=== PATIENT | female | born 1945 | race Caucasian/White ===

== ENCOUNTER → 2016-08-26 | Outpatient (CLI) | payer BC ==
--- NOTE | 2016-08-26 16:39 | MAMMOGRAPHY REPORT ---
BILATERAL DIGITAL SCREENING MAMMOGRAM WITH CAD: 08/26/2016 CLINICAL HISTORY: Routine screening. Patient has no complaints. TECHNIQUE: Bilateral CC and MLO views were obtained. Current study was also evaluated with a Comput er Aided Detection (CAD) system. COMPARISON: Comparison is made to exams dated: 08/21/2015 mammogram, 08/08/2014 mammogram, 08/04/2013 mammogram, 07/30/2012 mammogram, 07/30/2011 mammogram, and 07/29/2010 mammogram - [facility] nter. BREAST COMPOSITION: There are scattered areas of fibroglandular density in both breasts. FINDINGS: There are 2 possible adjacent masses in the upper outer posterior left breast that are in creasingly prominent comparing to prior mammograms. They measure 5.9 and 7.5 mm. Further character ization with spot compression tomosynthesis views and targeted ultrasound are recommended. There are additional circumscribed sub-centimeter masses throughout each breast that are stable comp ared to prior mammograms. No other new suspicious mass, architectural distortion or cluster of susp icious microcalcifications is seen. IMPRESSION: ACR BI-RADS CATEGORY 0: INCOMPLETE EVALUATION: NEED ADDITIONAL IMAGING EVALUATION The 2 possible adjacent masses in the upper outer quadrant of the left breast need additional evalua tion. The patient will be called to schedule an appointment. Approximately 10% of breast cancers are not detected with mammography. A negative mammographic repor t should not delay biopsy if a clinically suggestive mass is present. Yoon Moncada M.D. ay/:08/26/2016 15:42:32 Research Associate Quality Control Qc: Herminia PUGA(Helio)(Ana), [facility] letter sent: Addl Imaging 0 BI-RADS Code: ACR BI-RADS Category 0: Incomplete Evaluation: Need Additional Imaging Evaluation
== END | disposition home or self-care (01) ==
LOC: C.MAMM 10:03
PROVIDERS: ATTEND Family Medicine
DX: Z12.31 Encounter for screening mammogram for malignant neoplasm of breast (principal); N63 Unspecified lump in breast

== ENCOUNTER → 2016-09-09 | Outpatient (CLI) | payer BC ==
--- NOTE | 2016-09-09 16:30 | MAMMOGRAPHY REPORT ---
UNILATERAL LEFT DIGITAL DIAGNOSTIC MAMMOGRAM TOMOSYNTHESIS AND TARGETED LEFT ULTRASOUND: 09/09/2016 CLINICAL HISTORY: 70-year-old woman called back from screening mammography for 2 possible adjacent m asses in the upper outer posterior left breast. TECHNIQUE: Spot compression left CC and MLO 2-D digital and tomosynthesis images were obtained. COMPARISON: Comparison is made to exams dated: 08/26/2016 mammogram, 08/21/2015 mammogram, 08/08/2014 m ammogram, 08/04/2013 mammogram, 07/30/2012 mammogram, and 07/29/2010 mammogram - [facility] nter. BREAST COMPOSITION: There are scattered areas of fibroglandular density in the left breast. FINDINGS: On the spot compression left CC view, there is persistence of a lobulated and circumscribe d 6.4 x 7.2 mm mass. The questionable mass versus nodular asymmetry posterior to the first mass eff aces with the additional spot compression tomosynthesis views, suggesting it represented overlapping tissue. There is no focal area of architectural distortion or suspicious microcalcification. On t he spot compression MLO view of the left superior breast, there are 2 adjacent partially circumscrib ed masses measuring 6 mm. When comparing to prior available mammograms, these appear similar dating back to at least 07/29/2010. Targeted ultrasound was performed in the lateral left breast. Incidental note is made of a morpholo gically normal lymph node in the left axilla. There is a circumscribed hypoechoic to anechoic mass in the 2:00 left breast, 5 cm from the nipple, measuring 4.6 x 3.3 x 4.6 mm. In the 2:30 left breas t, 4 cm from the nipple, a round anechoic cystic appearing mass is identified measuring 2.4 x 2.5 x 2.7 mm. Another nearly anechoic cystic appearing mass is seen in the 12:00 periareolar left breast measuring 2.8 x 2.5 x 3.6 mm. Another hypoechoic to anechoic mass is seen in the 2:00 left breast, 2 cm from the nipple, measuring 2.8 x 2.4 x 3.6 mm. No suspicious solid mass is seen. IMPRESSION: ACR-BI-RADS CATEGORY 3: PROBABLY BENIGN, TARGETED ULTRASOUND ACR-BI-RADS CATEGORY 3: [place] OBABLY BENIGN Only one mass persists in the lateral, middle to posterior left breast with additional supplemental mammographic views. The nodular asymmetry posterior to this mass effaces with additional imaging, s uggesting it represented normal overlapping tissue. This mass has been stable compared to multiple prior mammograms, suggesting benignity. Multiple scattered anechoic to hypoechoic cystic-appearing masses are seen throughout the left lateral breast on ultrasound. Although these findings most likely represent benign fibrocystic changes, given the strong family hi story of breast cancer, and multiple masses seen mammographically, a short interval follow-up diagno stic left mammogram and possible repeat ultrasound is recommended to ensure stability in 6 months. These results and recommendations were discussed with the patient at the time of the exam. Approximately 10% of breast cancers are not detected with mammography. A negative mammographic repor t should not delay biopsy if a clinically suggestive mass is present. Yoon Moncada M.D. ay/:09/09/2016 14:40:08 Show Horse Driver: Herminia PUGA(Helio)(Ana), [facility] letter sent: Follow Up Recommended 3 BI-RADS Code: ACR-BI-RADS Category 3: Probably Benign Ultrasound BI-RADS: ACR-BI-RADS Category 3: P robably Benign
== END | disposition home or self-care (01) ==
LOC: C.MAMM 11:05
PROVIDERS: ATTEND Family Medicine
DX: N63 Unspecified lump in breast (principal); Z80.3 Family history of malignant neoplasm of breast

== ENCOUNTER → 2017-03-17 | Outpatient (CLI) | payer BC ==
--- NOTE | 2017-03-17 15:16 | MAMMOGRAPHY REPORT ---
UNILATERAL LEFT DIGITAL DIAGNOSTIC MAMMOGRAM TOMOSYNTHESIS WITH CAD AND TARGETED LEFT ULTRASOUND: CLINICAL HISTORY: 71-year-old woman presents for follow-up in the left breast of multiple probably be nign masses. Strong family history of breast cancer = 3 sisters. TECHNIQUE: Left CC and MLO 2-D and tomosynthesis images, spot compression left CC and MLO 2-D and to mosynthesis images were obtained. Current study was also evaluated with a Computer Aided Detection ( CAD) system. COMPARISON: Comparison is made to exams dated: 09/09/2016 ultrasound, 09/09/2016 mammogram, 08/26/2016 m ammogram, 08/21/2015 mammogram, 08/08/2014 mammogram, and 07/30/2012 mammogram - [facility]. BREAST COMPOSITION: There are scattered areas of fibroglandular density in the left breast. FINDINGS: On the full field left CC and MLO views, there is persistence of a circumscribed 5 mm mass in the upper outer middle to posterior breast, with possible new adjacent circumscribed [address] medial to the first on the CC tomosynthesis images. There is other stable nodularity in the left breast. However, there is a possible area of architectural distortion in the lateral, middle one thi rd of the left breast on the CC tomosynthesis images (slice 24/62), for which an additional spot comp ression tomosynthesis view was obtained. On this additional view there is persistent architectural d istortion seen on slice 19/55 of the CC spot compression tomosynthesis images. A questionable second area of distortion just lateral and superior to the first. No distortion is definitely seen on the full field or spot compression MLO tomosynthesis images. Further evaluation with ultrasound was perf ormed. Targeted ultrasound was performed throughout the lateral left breast. A benign anechoic simple cyst is seen in the 2:00 left breast, 5 cm from the nipple, measuring 5.0 x 3.6 x 3.8 mm. A second smalle r anechoic cyst is seen in the 2:30 left breast, 5 cm from the nipple, measuring 2.2 mm. A lobulated cyst measuring 7 mm is seen in the 12:00 left breast. No suspicious solid mass or definite area of architectural distortion is seen on ultrasound. The mammogram finding remains indeterminate, given t he patient's strong family history of breast cancer, and a stereotactic tomosynthesis guided biopsy i s recommended. IMPRESSION: ACR BI-RADS CATEGORY 4: SUSPICIOUS, TARGETED ULTRASOUND ACR BI-RADS CATEGORY 4: SUSPICIO US 1. There is stable nodularity in the left upper outer posterior breast, thought to correlate with be nign simple cysts on ultrasound. These findings are most compatible with benign fibrocystic changes. 2. Incidentally seen is a small focal area of architectural distortion on the CC tomosynthesis image s, without definite sonographic correlate identified. This finding remains indeterminate and could r epresent a radial scar carcinoma and definitive characterization with a stereotactic tomosynthesis gu ided biopsy is recommended. These results and recommendations were discussed with the patient at the time of the exam. She tenta tively scheduled the left breast biopsy prior to leaving our department. Approximately 10% of breast cancers are not detected with mammography. A negative mammographic report should not delay biopsy if a clinically suggestive mass is present. Yoon Moncada M.D. ay/:03/17/2017 12:30:02 Net Mvc Developer: Herminia PUGA(Helio)(Ana), [facility] letter sent: Abnormal 4/5 BI-RADS Code: ACR BI-RADS Category 4: Suspicious Ultrasound BI-RADS: ACR BI-RADS Category 4: Suspici ous
== END | disposition home or self-care (01) ==
LOC: C.MAMM 10:51
PROVIDERS: ATTEND Family Medicine
DX: N63.20 Unspecified lump in the left breast, unspecified quadrant (principal); R92.2 Inconclusive mammogram; Z80.3 Family history of malignant neoplasm of breast

== ENCOUNTER → 2017-04-02 | Outpatient (CLI) | payer BC ==
--- NOTE | 2017-04-02 13:13 | Discharge Instructions ---
Discharge Instructions Procedure Procedure Date: Apr 02, 2017. Reason for visit: Left Distortion. Discharge Discharge Date: Apr 02, 2017. Discharge Diagnosis: status post breast biopsy Instructions Activity Recommendations: Additional Limitations (see below) Return to School/Work: no limitations Recommended Home Diet: No Limitations Provider Instructions: ACTIVITY RECOMMENDATIONS: * No lifting, pushing, pulling or exercising the affected side for three days. RETURN TO SCHOOL/WORK: * You may return to work/school after the procedure, but do not perform any strenuous activities for 24 to 48 hours. MEDICATIONS: * Tylenol (two 325 mg) every four to six hours if needed for mild pain (if not allergic to Tylenol). DIET: * Resume previous diet. SPECIAL CARE INSTRUCTIONS: * Keep biopsy site dry for 24 hours. May shower after 24 hours, but do not soak (bathe) incision. * May remove Tegaderm (plastic patch) tomorrow AFTER showering. * Leave the steri-strips on for one week. Allow the steri-strips to fall off by themselves. If not off after one week, you may remove them. You may place a Bandaid crosswise over the strips, if desired. * Apply ice 10 minutes on and 10 minutes off as needed. * Wear a bra at bedtime to sleep more comfortably for 2-3 days. * Your referring physician should have the results after approximately 5 to 7 business days. * Call for unusual bleeding, fever, drainage, etc or if you have any questions call during normal business hours or after hours call Dr Girard, . FOLLOW UP VISIT: Follow-up with Referring Physician as scheduled. Allergies Coded Allergies: Amoxicillin (Verified Allergy, Unknown, UNKNOWN, 05/31/15) Iodine (Verified Allergy, Unknown, UNKNOWN, 05/31/15) Penicillins (Verified Allergy, Unknown, UNKNOWN, 05/31/15) Sulfa Antibiotics (Verified Allergy, Unknown, UNKNOWN, 05/31/15) Sharlene Lema Recommendations: Call your doctor if: * Temperature above 101 degrees * Pain not relieved by pain medicine ordered * There is increased drainage or redness from any incision * You have any unanswered questions or concerns. Your Doctors Instructions noted above were prepared by provider Elida Girard. Patient Signature Section: Patient Instructions Signature Page Do [place] Patient (or Guardian) Signature/Date: I have read and understand the instructions given to me by my caregivers. Caregiver/RN/Doctor Signature/Date: The above-named patient and/or guardian has received patient instructions on this date. + Original Patient Signature Page (only) stays with chart. Please make copy for patient.
--- NOTE | 2017-04-02 14:53 | MAMMOGRAPHY REPORT ---
UNILATERAL LEFT DIGITAL DIAGNOSTIC MAMMOGRAM TOMOSYNTHESIS: 04/02/2017 CLINICAL HISTORY: Status post left breast stereotactic biopsy. TECHNIQUE: Breast tomosynthesis in addition to standard 2D mammography was performed. Postprocedura l left CC and ML tomosynthesis images including C views were obtained. COMPARISON: Comparison is made to exams dated: 03/17/2017 mammogram, 03/17/2017 ultrasound, 7 ultrasound, 08/26/2016 mammogram, 08/21/2015 mammogram, and 08/08/2014 mammogram - [facility]. BREAST COMPOSITION: There are scattered areas of fibroglandular density in the left breast. FINDINGS: A new biopsy marker clip and associated postbiopsy air is seen within the left lateral lukas ast in the region of the targeted focal architectural distortion seen on the cc view only. A focal p ocket of air is seen within the left superior breast on the ML view, however, the biopsy marker clip is located approximately 3.8 cm inferior to the air pocket, suggest that there could be clip migratio n in the craniocaudal dimension. However, it is difficult to tell if there is true migration as the distortion is not clearly seen on the lateral view. No significant postbiopsy hematoma is seen. IMPRESSION: POST PROCEDURE IMAGING FOR MARKER PLACEMENT New biopsy marker clip status post left breast stereotactic biopsy. Pathology results are pending. Approximately 10% of breast cancers are not detected with mammography. A negative mammographic report should not delay biopsy if a clinically suggestive mass is present. Elida Girard M.D. ah/:04/02/2017 13:31:45 Attending Technologist: Nanette Kaur RT(R)(M), [facility] [employer] Associate: Wyatt Montero RT(R)(M), [facility] BI-RADS Code: Post Procedure Imaging For Marker Placement
--- NOTE | 2017-04-02 14:53 | MAMMOGRAPHY REPORT ---
STEREOTACTIC GUIDED BIOPSY LEFT BREAST: 04/02/2017 CLINICAL HISTORY: Architectural distortion seen within the left lateral breast on the cc view only. PATIENT CONSENT: The procedure, risks, benefits, and alternatives of stereotactic biopsy with clip pl acement were discussed with the patient, and verbal and written consent was obtained. A timeout was performed immediately prior to the procedure. PROCEDURE DESCRIPTION: With tomosynthesis stereotactic guidance, aseptic technique, and lidocaine as a local anesthetic (1% lidocaine to anesthetize the skin and 1% lidocaine with epinephrine to anesthe tize the deeper tissues), the focal architectural distortion within the left lateral breast was sampl ed multiple times with a 9-gauge vacuum-assisted biopsy needle ([employer]). The path of approach w as craniocaudal. A metallic marker clip was placed at the biopsy site. This was confirmed on postpr ocedure mammograms. Direct pressure was applied at the biopsy site and hemostasis was readily achiev ed. The patient tolerated the procedure without complication. She was given wound care instructions . COMPARISON: Comparison is made to exams dated: 03/17/2017 mammogram, 03/17/2017 ultrasound, 7 mammogram, 08/26/2016 mammogram, 08/21/2015 mammogram, and 08/08/2014 mammogram - [facility]. IMPRESSION: STEREOTACTIC GUIDED BIOPSY Stereotactic tomosynthesis guided biopsy of focal architectural distortion within the left lateral br east, with clip placement. The patient will receive pathology results from her referring provider. Elida Girard M.D. /:04/02/2017 13:24:51 Attending Technologist: Nanette Kaur RT(R)(M), [facility] [employer]: Wyatt Montero RT(R)(M), [facility]
== END | disposition home or self-care (01) ==
LOC: C.MAMM 12:29
PROVIDERS: ATTEND Family Medicine
DX: N64.9 Disorder of breast, unspecified (principal); N60.82 Other benign mammary dysplasias of left breast; N60.92 Unspecified benign mammary dysplasia of left breast; N60.12 Diffuse cystic mastopathy of left breast

== ENCOUNTER → 2017-08-28 | Outpatient (CLI) | payer BC ==
--- NOTE | 2017-08-28 15:38 | MAMMOGRAPHY REPORT ---
BILATERAL DIGITAL SCREENING MAMMOGRAM TOMOSYNTHESIS WITH CAD: 08/28/2017 CLINICAL HISTORY: Routine screening. TECHNIQUE: Breast tomosynthesis in addition to standard 2D mammography was performed. Current study was also evaluated with a Computer Aided Detection (CAD) system. COMPARISON: Comparison is made to exams dated: 04/02/2017 mammogram, 03/17/2017 mammogram, 08/26/2016 m ammogram, 08/21/2015 mammogram, 08/08/2014 mammogram, and 08/04/2013 mammogram - [facility]. BREAST COMPOSITION: There are scattered areas of fibroglandular density in both breasts. FINDINGS: No suspicious masses, calcifications, or areas of architectural distortion are noted in ei ther breast. There has been no significant interval change compared to prior exams. A biopsy clip is again noted within the left lateral breast from prior benign stereotactic biopsy. Bilateral nodular ity is stable compared to prior exams, with corresponding small benign cysts seen on prior ultrasound exams. IMPRESSION: ACR BI-RADS CATEGORY 2: BENIGN There is no mammographic evidence of malignancy. A 1 year screening mammogram is recommended. The pa tient will receive written notification of the results. Approximately 10% of breast cancers are not detected with mammography. A negative mammographic report should not delay biopsy if a clinically suggestive mass is present. Elida Girard M.D. /:08/28/2017 15:16:36 Memory Care Program Resident: Wyatt KNIGHT)(Ana), [facility] letter sent: Normal 1/2 BI-RADS Code: ACR BI-RADS Category 2: Benign
== END | disposition home or self-care (01) ==
LOC: C.MAMM 10:00
PROVIDERS: ATTEND Family Medicine
DX: Z12.31 Encounter for screening mammogram for malignant neoplasm of breast (principal)